=== PATIENT | female | born 1935 | race Caucasian/White ===

== ENCOUNTER 2019-05-18 19:26 | Inpatient (IN) ==
[2019-05-18] MEDS ORDERED: CARDIZEM IV ONE ×3 (20:27→23:49)
--- NOTE | 2019-05-18 21:17 | EKG Report ---
Test Performed on : 05/18/2019 7:33:31 PM Test Reason : palpitations Blood Pressure : / mmHG Vent. Rate : 132 BPM Atrial Rate : 258 BPM P-R Int : 000 ms QRS Dur : 072 ms QT Int : 272 ms P-R-T Axes : 078 073 075 degrees QTc Int : 403 ms Atrial flutter. with variable AV block. Nonspecific T wave abnormality Abnormal ECG When compared with ECG of 31-JUL-2017 16:12, Atrial flutter. has replaced Sinus rhythm. Vent. rate has increased BY [address] elevation now present in Inferior leads Nonspecific T wave abnormality, worse in Lateral leads Confirmed by Torsten RAMOS, Pedro ([id number]) on 05/19/2019 8:40:20 AM
[2019-05-18 22:36] LABS: BASO# 0.01 X1000 (0.0-0.2); BASO% 0.1 % (0.0-0.8); EOS# 0.08 X1000 (0.0-0.7); EOS% 1.1 % (0.0-10.0); HEMATOCRIT 41.9 % (37.0-47.0); HEMOGLOBIN 13.9 g/dL (12.0-16.0); LYMPH# 1.15 X1000 (1.2-3.4); LYMPH% 16.4 % (20.5-51.1); MCH 31.4 PG (27-31); MCHC 33.2 g/dL (33-37); MCV 94.8 FL (81-99); MONO# 0.68 X1000 (0.11-0.59); MONO% 9.7 % (1.7-9.3); MPV 9.7 FL (7.4-10.4); NEUT% 72.7 % (42.2-75.2); PLT 281 X1000 (130-400); RBC 4.42 XMIL (4.2-5.4); RDW 12.6 % (11.5-14.5); WBC 7.02 X1000 (4.8-10.8)
[2019-05-18 22:44] LABS: ALBUMIN 3.9 g/dL (3.5-5.0); CALCIUM 9.4 mg/dL (8.8-10.2); CREATININE 0.9 mg/dL (0.5-0.9); POTASSIUM 4.8 mmol/L (3.5-5.1); TOTAL BILIRUBIN 0.36 mg/dL (0.20-1.00); TOTAL PROTEIN 7.8 g/dL (6.3-8.3)
[2019-05-18 22:54] LABS: FREE T4 1.72 ng/dL (0.93-1.70); TSH 3.11 uIUmL (0.27-4.20)
[2019-05-18] MEDS ORDERED: ASPIRIN PO ONE (23:49)
[2019-05-18] MEDS ORDERED: NITROGLYCERIN SL ONE (23:50)
--- NOTE | 2019-05-19 00:07 | PROVIDER DOCUMENTATION ---
This chart was entered by Silvana Brian Scribe, acting as scribe for Abi Hernandez MD. HPI-Cardiac General - General Chief Complaint: Palpitations Stated Complaint: HIGH HEART RATE Time Seen by Provider: 05/18/19 19:31 Source: patient, family, RN/MD Allergies/Adverse Reactions: Patient Allergies Allergy/AdvReac Type Severity Reaction Status Date / Time No Known Allergies Allergy Verified 11/14/17 18:31 Home Medications: Home Medication List Medication Instructions Recorded Confirmed Last Taken Type Levothyroxine [Synthroid] 100 microgm PO DAILY 08/04/12 05/19/19 10/16/17 07:00 History Apixaban [Eliquis] 5 mg PO BID #60 tab 06/25/17 05/19/19 10/16/17 07:00 Rx Acetaminophen [Tylenol] 650 mg PO Q6H PRN PRN tablet 11/19/17 Unknown Rx Amiodarone [Cordarone] 100 mg PO QAM tablet 11/19/17 05/19/19 05/18/19 18:00 Rx Desvenlafaxine E.r. [Pristiq ER] 50 mg PO DAILY tablet 11/19/17 05/19/19 Unknown Rx Sucralfate [Carafate] 05/19/19 05/19/19 Unknown History - History of Present Illness-Cardiac Nature of Presenting Problem: pt is an 83 yof c/o heart palpitations since this am becoming worse this pm. pt has mild sob that is unchanged from baseline. pt did albuterol breathing tx x1 today. pt has hx of afib and is on rx. pt denies n/v, cp and diaphoresis. pt lives w/family. nonsmoker, no alcohol or drug use. Quality of Pain: reports: none Severity in ED: mild Onset/Duration: this morning Timing: getting worse Context/Activities at Onset: reports: none Modifying Factors: improves with: nothing Palpitation Quality: fast/pounding heart beat History of arrythmia: reports: A-Fib Recent use of:: reports: no stimulants Associated Symptoms: reports: shortness of breath (mild) Review of Systems - Adult - REVIEW OF SYSTEMS - ADULT Constitutional: reports: no symptoms reported. denies: chills, fever, fatique Eyes: reports: no symptoms reported Ears, Nose, Mouth & Throat: reports: no symptoms reported Cardiovascular: reports: see HPI, palpitations. denies: chest pain, orthopnea, poor circulation Respiratory: reports: see HPI, shortness of breath (mild). denies: cough, hemop tysis, pleurisy Gastrointestinal: reports: no symptoms reported Genitourinary: reports: no symptoms reported Musculoskeletal: reports: no symptoms reported Integumentary: reports: no symptoms reported Neurological: reports: no symptoms reported Psychiatric: reports: no symptoms reported Endocrine: reports: no symptoms reported Hematologic/Lymphatic: reports: no symptoms reported Allergic/Immunologic: reports: no symptoms reported All Other Systems: Reviewed and Negative Past History - Adult - PAST MEDICAL HISTORY-ADULT Review of Records: reports: Nursing Assessment Review, Medications Reviewed, Social history reviewed & non-contributory. Major Childhood Illnesses: reports: denies history Cardiovascular: reports: A-Fib, HTN Respiratory: reports: denies history Gastrointestinal: reports: denies history Obstetrical/Gynecological: reports: denies history Genitourinary: reports: denies history Musculoskeletal: reports: fibromyalgia Neurological: reports: denies history Psychiatric: reports: anxiety Endocrine/Immune: reports: denies history Other Conditions: reports: denies history - PRIOR SURGERIES/PROCEDURES Surgical/Procedure History: reports: appendectomy, hysterectomy, breast, other - IMMUNIZATION STATUS Childhood Immunizations: See Nurse Assessment Flu Vaccine: See Nurse Assessment - FAMILY HISTORY Family History: reviewed, not pertinent - SOCIAL HISTORY Smoking: non-smoker Substance Use: none/never Alcohol Use Frequency: never Living Situation: family Physical Exam-General - PHYSICAL EXAM-ADULT Initial Vital Signs Reviewed: Yes - CONSTITUTIONAL General Appearance: appears well, alert, no apparent distress - EYES Eyes: PERRL/EOMI, pink conjunctivae - HEAD, EARS, NOSE, MOUTH & THROAT HENMT: normocephalic/atraumatic, moist mucous membranes - NECK Neck: non-tender, full range of motion, supple, normal inspection - RESPIRATORY Respiratory: chest non-tender, lungs clear, normal breath sounds - CARDIOVASCULAR Cardiovascular: normal peripheral pulses, no edema, no gallop, no JVD, no murmur , tachycardia. negative: regular rate, rhythm, JVD, bradycardia, extra beats, friction rub - GASTROINTESTINAL (ABDOMEN) Abdominal Exam: normal bowel sounds, non tender, soft - LYMPHATIC Lymphatic: no adenopathy - MUSCULOSKELETAL Back Exam: normal inspection Extremity: normal range of motion, non-tender, normal inspection Peripheral Pulses: radial (R): 2+, radial (L): 2+ - SKIN Integumentary: normal color, normal turgor, warm/dry - NEUROLOGIC Neurologic: grossly normal, no motor/sensory deficits - PSYCHIATRIC Psych/Mental Status: normal mood/affect, normal thought content, normal thought process, oriented x 3 - HEART Score HEART Score: History: Slightly Suspicious HEART Score: ECG: Non-Specific Repolarization Disturbance/LBBB/PM HEART Score: Age: > or = 65 Years HEART Score: Risk Factors for Atherosclerotic Disease: 1 or 2 Risk Factors HEART Score: Troponin: < or = Normal Limit Total HEART Score:: 4 Progress - PLAN OF CARE/RESULTS Progress/Plan/Lab Results: Vital Signs - 8 hr 05/18/19 19:26 05/18/19 19:46 05/18/19 19:47 Temperature 98.3 F Pulse Rate 133 H 128 H 127 H Respiratory Rate 19 19 20 Blood Pressure 162/123 160/105 O2 Sat by Pulse Oximetry 100 97 05/18/19 20:00 05/18/19 20:15 05/18/19 20:16 Temperature Pulse Rate 127 H 125 H 126 H Respiratory Rate 22 26 H 19 Blood Pressure 184/124 O2 Sat by Pulse Oximetry 98 98 97 05/18/19 20:30 05/18/19 20:31 05/18/19 20:45 Temperature Pulse Rate 120 H 121 H 124 H Respiratory Rate 20 21 19 Blood Pressure 158/107 O2 Sat by Pulse Oximetry 98 97 97 05/18/19 20:46 05/18/19 21:00 05/18/19 21:01 Temperature Pulse Rate 126 H 98 H 94 H Respiratory Rate 15 17 18 Blood Pressure 149/112 150/94 O2 Sat by Pulse Oximetry 97 97 96 05/18/19 21:13 05/18/19 21:16 05/18/19 21:46 Temperature 98.1 F Pulse Rate 100 H 121 H Respiratory Rate 21 19 Blood Pressure 147/91 149/99 O2 Sat by Pulse Oximetry 97 98 05/18/19 22:01 05/18/19 22:16 05/18/19 22:31 Temperature Pulse Rate 103 H 98 H 102 H Respiratory Rate 16 17 17 Blood Pressure 160/102 134/106 149/88 O2 Sat by Pulse Oximetry 98 97 97 05/18/19 22:46 05/18/19 23:01 05/18/19 23:16 Temperature Pulse Rate 107 H 100 H 104 H Respiratory Rate 18 17 19 Blood Pressure 145/108 157/100 167/100 O2 Sat by Pulse Oximetry 97 98 98 05/18/19 23:32 05/18/19 23:47 05/19/19 00:04 Temperature Pulse Rate 107 H 108 H 114 H Respiratory Rate 17 17 21 Blood Pressure 162/114 146/95 154/117 O2 Sat by Pulse Oximetry 98 97 97 05/19/19 00:10 05/19/19 00:16 05/19/19 00:21 Temperature Pulse Rate 112 H 109 H 102 H Respiratory Rate 22 32 H 22 Blood Pressure 114/84 134/82 150/101 O2 Sat by Pulse Oximetry 96 96 97 05/19/19 00:26 05/19/19 00:31 05/19/19 00:36 Temperature Pulse Rate 106 H 100 H 105 H Respiratory Rate 18 12 19 Blood Pressure 125/98 128/97 115/84 O2 Sat by Pulse Oximetry 97 97 97 05/19/19 00:41 05/19/19 00:46 Temperature Pulse Rate 101 H 104 H Respiratory Rate 21 20 Blood Pressure 137/86 129/84 O2 Sat by Pulse Oximetry 97 97 Laboratory Results - last 24 hr 05/18/19 05/18/19 05/18/19 20:45 20:45 20:45 WBC 7.02 RBC 4.42 Hgb 13.9 Hct 41.9 MCV 94.8 MCH 31.4 H MCHC 33.2 RDW Std Deviation 12.6 Plt Count 281 MPV 9.7 Immature Gran % (Auto) 0.0 Neut % (Auto) 72.7 Lymph % (Auto) 16.4 L [place] % (Auto) 9.7 H Eos % (Auto) 1.1 Baso % (Auto) 0.1 Immature Gran # (Auto) 0.00 Neut # (Auto) 5.10 Lymph # (Auto) 1.15 L [place] # (Auto) 0.68 H Eos # (Auto) 0.08 Baso # (Auto) 0.01 Sodium Potassium Chloride Carbon Dioxide Anion Gap BUN Creatinine Estimated GFR/1.73 m2 BUN/Creatinine Ratio Glucose Calculated Osmolality Calcium Total Bilirubin AST ALT Alkaline Phosphatase Creatine Kinase 57 Troponin T < 0.010 Total Protein Albumin Globulin Albumin/Globulin Ratio TSH Free T4 Urine Source 05/18/19 05/18/19 12 20:45 20:45 23:31 WBC RBC Hgb Hct MCV MCH MCHC RDW Std Deviation Plt Count MPV Immature Gran % (Auto) Neut % (Auto) Lymph % (Auto) [place] % (Auto) Eos % (Auto) Baso % (Auto) Immature Gran # (Auto) Neut # (Auto) Lymph # (Auto) [place] # (Auto) Eos # (Auto) Baso # (Auto) Sodium 134 L Potassium 4.8 Chloride 96 L Carbon Dioxide 24 L Anion Gap 14 BUN 20 Creatinine 0.9 Estimated GFR/1.73 m2 60 BUN/Creatinine Ratio 22 Glucose 88 Calculated Osmolality 270 Calcium 9.4 Total Bilirubin 0.36 AST 28 ALT 13 Alkaline Phosphatase 135 H Creatine Kinase Troponin T < 0.010 Total Protein 7.8 Albumin 3.9 Globulin 3.9 Albumin/Globulin Ratio 1.0 TSH 3.11 Free T4 1.72 H Urine Source 05/19/19 00:46 WBC RBC Hgb Hct MCV MCH MCHC RDW Std Deviation Plt Count MPV Immature Gran % (Auto) Neut % (Auto) Lymph % (Auto) [place] % (Auto) Eos % (Auto) Baso % (Auto) Immature Gran # (Auto) Neut # (Auto) Lymph # (Auto) [place] # (Auto) Eos # (Auto) Baso # (Auto) Sodium Potassium Chloride Carbon Dioxide Anion Gap BUN Creatinine Estimated GFR/1.73 m2 BUN/Creatinine Ratio Glucose Calculated Osmolality Calcium Total Bilirubin AST ALT Alkaline Phosphatase Creatine Kinase Troponin T Total Protein Albumin Globulin Albumin/Globulin Ratio TSH Free T4 Urine Source CLEAN CATCH Orders Category Date Time Status Update & Confirm Home Medicati ROUTINE Care 05/19/19 00:36 Active cxr [CHEST-1 VIEW] [RAD] Stat Exams 05/19/19 00:46 Ordered CBC WITH DIFF [HEME] Stat Lab 05/18/19 20:45 Completed CK PROFILE [SP CHEM] Stat Lab 05/18/19 20:45 Completed COMPREHENSIVE METABOLIC PANEL [CHEM] Stat Lab 05/18/19 20:45 Completed FREE T4 Stat Lab 05/18/19 20:45 Completed TROPONIN T Stat Lab 05/18/19 20:45 Completed TROPONIN T Stat Lab 05/18/19 23:31 Completed TSH Stat Lab 05/18/19 20:45 Completed UA [URINALYSIS W/POSS RFLX CULT] [URINALYSIS] Stat Lab 05/19/19 00:46 Results Aspirin Med 05/18/19 23:49 Discontinued 81 mg PO NOW ONE Digoxin [Lanoxin] Med 05/19/19 00:36 Discontinued 250 microgm IV NOW ONE Diltiazem [Cardizem] Med 05/18/19 20:27 Discontinued 10 mg IV NOW ONE Diltiazem [Cardizem] Med 05/18/19 22:07 Discontinued 10 mg IV NOW ONE Diltiazem [Cardizem] Med 05/18/19 23:49 Discontinued 5 mg IV NOW ONE Diltiazem [Cardizem] Med 05/19/19 00:37 Discontinued 60 mg PO NOW ONE Nitroglycerin Sl [Nitroglycerin] Med 05/18/19 23:50 Discontinued 0.4 mg SL NOW ONE EKG [EKG] Stat Ther 05/18/19 20:27 Draft Transfer/Admit Order [TRANSFER] Routine Transfer 05/19/19 00:31 Ordered Result Diagrams: 05/18/19 20:45 05/18/19 20:45 - REASSESSMENT Reassessment #1 Time Reassessed: 22:08 Status: improving (Denies chest, sob. comfortable. Discussed initial neg trop. BP and pulse improving but still elevated. Will repeat cardizen and trop. Based on her previous hospitalization not reviewed, she has no h/o HTN but hypot4, will order tsh, t4) Reassessment #2 Time Reassessed: 11:30 Status: worsening (patient no reports chest pain and wants to be admitted. will give her, NTG ASA 81mg. had given her a small part of asa 325mg as he had broken it in pieces. She has not been given a 2nd dose of cardizen, will give her 5mg as she is still hypertensive, tarhycardic) - EKG 1 Time of EKG reading by physician:: 19:39 EKG Read and Signed by:: Wang Almonte EKG Interpretation (*Must complete 3 of following elements*): Abnormal Rate: 132 Rhythm: Aflutter w/variable AV block [place]: normal QRS: normal ST Wave: non-specific ST changes (nonspecific T wave abnormality) - CONSULTS/PCP/HOSPITALIST Notification #1 *Consult/PCP/Hospitalist*: Dr Harmon Time Discussed: 11:55 Consult Disposition: Admit (accepts admission) Departure - Departure Date of Disposition Decision: 05/19/19 Time of Disposition Decision: 11:55 DIAGNOSIS: Atrial fibrillation/flutter Chest pain Qualifiers: Chest pain type: unspecified Qualified Code(s): R07.9 - Chest pain, unspecified Disposition: ADMITTED INPATIENT 09 Certified Medical Emergency: Emergent Condition: Fair Referrals and Follow-Ups: Yordan Rai MD [Primary Care Provider] - - Critical Care Note This patient required my direct & personal management of CC.: No Attestation - Physician/ WALTER Attestation Patient care was provided by Advanced Practice Provider:: No The physician spent face to face time with patient:: Yes Advanced Practice Provider documentation review:: Supervising physician onsite and consulted in the evaluation and care of this patient. The physician did have a face to face encounter with the patient. This chart was documented by the indicated scribe, (Silvana Brian Scribe) and accurately reflects the services I performed and decisions made by me, Abi Hernandez MD, as attested by the provider's signature.
[2019-05-19] MEDS ORDERED: LANOXIN IV ONE (00:36)
[2019-05-19] MEDS ORDERED: CARDIZEM PO ONE (00:37)
[2019-05-19 00:50] LABS: URINE SOURCE CLEAN CATCH
[2019-05-19 01:32] LABS: BILIRUBIN URINE NEGATIVE (NEGATIVE); BLOOD URINE NEGATIVE (NEGATIVE); COLOR STRAW; GLUCOSE URINE NEGATIVE (NEGATIVE); KETONE URINE NEGATIVE (NEGATIVE); LEUKOCYTES URINE NEGATIVE (NEGATIVE); NITRITE URINE NEGATIVE (NEGATIVE); PROTEIN URINE NEGATIVE (NEGATIVE); SP GRAVITY URINE 1.009; TURBIDITY URINE CLEAR (CLEAR); UROBILINOGEN URINE NORMAL (NORMAL)
[2019-05-19 01:33] LABS: UR EPITHELIAL CELLS <10 /HPF (<10); URINE BACTERIA NEGATIVE /HPF; URINE RBC <10 /HPF (<10); URINE WBC <10 /HPF (<10)
[2019-05-19] MEDS ORDERED: TYLENOL PO PRN ×2 (02:52→04:46)
[2019-05-19] MEDS ORDERED: NS 1,000 ML IV SCH (02:52)
[2019-05-19] MEDS ORDERED: ZOFRAN IV PRN (02:52)
[2019-05-19] MEDS: XOPENEX NEB INH SCH ×6 (02:59→23:50)
--- NOTE | 2019-05-19 04:24 | HISTORY AND PHYSICAL ---
PRIMARY CARE PHYSICIAN: Yordan Rai MD CHIEF COMPLAINT: Heart palpitations, high heart rate. HPI: This is an 83-year-old female. She is very pleasant but is a fairly poor historian. Her elderly is at the bedside. Patient has mild shortness of breath. I think this is related to bronchiectasis. She has other past medical histories of hypothyroidism, hypertension, paroxysmal atrial fibrillation, chronic mid and low back pain, as well as GERD. She stated that she started having heart palpitations after taking her normal breathing treatment. She was unable to tell what her home medications were, as noted above is somewhat of a poor historian. She did state that she has been taking CBD oil, which we have recently noted flipping patients into atrial fibrillation in the elderly population admissions. At any rate, after her albuterol breathing treatment she started having palpitations. She states that she has been taking all of her home medications, however, she is not sure what those are. She denied any nausea or vomiting. Originally denied chest pain, however, she was having some mild chest pain during my examination. It was substernal, did not radiate, and she also denied diaphoresis. EKG confirmed AFib with a rapid ventricular rate. She was given several doses of IV Cardizem. She is now somewhat rate controlled with a rate around 100. Will give her an oral dose of Cardizem in the emergency room as well as an IV dose of digoxin, and place her on PVC for further evaluation and treatment. PAST MEDICAL HISTORY: See HPI. PREVIOUS SURGICAL HISTORY: Status post left mastectomy, appendectomy, hysterectomy, parathyroid tumor removal. SOCIAL HISTORY: Lives with elderly . No alcohol or tobacco. No illicit drugs. FAMILY HISTORY: States that was positive for heart disease as well as CVA. ALLERGIES: AZITHROMYCIN AND CEPHALEXIN. HOME MEDICATIONS: A list of home medications could not be obtained. Apparently it is with the daughter who is not presently here. She is supposed to bring the medications tomorrow, however, Dr. Yordan Rai likely has a copy of her home medication list as he sees her outpatient. Will defer to him tomorrow morning restarting her home medications. REVIEW OF SYSTEMS: A 14-point conducted with the patient. Pertinent positives listed above in the HPI. All other systems reviewed and found to be negative. PHYSICAL EXAMINATION: VITAL SIGNS: Temperature 98.1, pulse 104, respirations 17, blood pressure 138/88, oxygen saturation 98% on room air. GENERAL: Pleasant 83-year-old female lying in the ER stretcher. She is alert and oriented x3, somewhat of a poor historian. is at bedside. She is in no acute distress. HEENT: Head is atraumatic, normocephalic. Pupils equal, round, reactive to light. Extraocular eye movements intact. Sclera anicteric. Conjunctiva pink. Oral mucosa is moist. NECK: Supple. No JVD, no thyromegaly. Trachea is midline. No cervical lymphadenopathy. CARDIAC: S1, S2, appreciated. Irregularly irregular. She is mildly tachycardic. No murmurs, gallops, rubs. LUNGS: Clear to auscultation bilaterally. No rhonchi, wheezes, rales. Symmetric rise and fall respirations. ABDOMEN: Soft, nondistended, nontender. Bowel sounds present all 4 quadrants. Normoactive. No pulsatile mass or organomegaly. EXTREMITIES: No clubbing or cyanosis, 1+ pitting edema bilateral ankles, 1+ pedal pulses. Lower extremities are cool to touch. NEUROLOGICAL: She is alert and oriented x3. Poor historian. Cranial nerves 2- 12 appear to be grossly intact. DIAGNOSTIC DATA: EKG shows AFib with a rapid ventricular rate. LABORATORY DATA: CBC within normal limits. Sodium 134, potassium 4.8, chloride 96, carbon dioxide 24, BUN 20, creatinine 0.9, glucose 88. Troponin negative x2 sets. TSH is 3.11. ASSESSMENT: 1. Atrial fibrillation with a rapid ventricular rate. 2. Bronchiectasis. 3. Hypothyroidism. 4. Chronic back pain. PLAN: Admit patient to PVC. As noted her heart rate has been somewhat controlled at this time. Will give her 60 mg p.o. Cardizem and 250 mcg of IV digoxin. She was unable to tell me if she is on blood thinners. I assume that she is. Again, will defer to Dr. Rai to restart her home medications tomorrow morning. In the past I see that she has been on Cardizem as well as low-dose amiodarone, and Eliquis. These can be restarted tomorrow once dosage is confirmed. Chest x-ay is pending secondary to bronchiectasis. TSH is within normal limits. Continue her normal dosing of Synthroid once obtained. Chronic back pain. She did not have any complaints of pain at this time. She has Tylenol on her medication profile. Again will defer to Dr. Rai restarting her home medications. The patient states that she does not take any kind of narcotic pain medication. That is the reason she tried the CBD oil was for the chronic back pain. At any rate, as noted above the patient will be placed on PCV and monitored closely with telemetry. Further recommendations per patient clinical course. Dictated by LESLEY Barbour for Michael Harmon MD cc: LESLEY Barbour MD Russell T. Barr, MD Independent exam only notable for fluctuating sinus tachycardia vs a fib rvr. Will continue Oral Cardizem since HR maintaining the low 100's. Likely due albuterol and or CBD oil. MTDD
[2019-05-19] MEDS: ULTRAM PO PRN (05:15)
[2019-05-19] MEDS: TYLENOL PO PRN (05:15)
--- NOTE | 2019-05-19 07:15 | Diag Imaging Result Doc PS360 ---
EXAM: CHEST-1 VIEW 05/19/2019 HISTORY: dypnea TECHNIQUE: AP portable at 0104 COMMENT: There are patchy nodular and coarse opacities over both lungs which were largely present on 09/18/2018. There may be some superimposed interstitial opacity which was not previously present. IMPRESSION: Granulomatous changes and pulmonary fibrosis with superimposed pulmonary edema. Electronically signed by Danish [place] 05/19/2019 7:12 AM
[2019-05-19] MEDS: ELIQUIS PO SCH ×2 (08:31→21:35)
[2019-05-19] MEDS: SYNTHROID PO SCH (08:31)
[2019-05-19] MEDS: PRISTIQ ER PO SCH (08:32)
[2019-05-19] MEDS ORDERED: CORDARONE PO SCH (09:00)
--- NOTE | 2019-05-19 11:11 | EKG Report ---
Test Performed on : 05/19/2019 10:58:04 AM Test Reason : afib Blood Pressure : / mmHG Vent. Rate : 096 BPM Atrial Rate : 249 BPM P-R Int : 000 ms QRS Dur : 082 ms QT Int : 408 ms P-R-T Axes : 000 072 067 degrees QTc Int : 515 ms Atrial flutter. with variable AV block. Prolonged QT Abnormal ECG When compared with ECG of 18-MAY-2019 19:33, No significant change was found Confirmed by Torsten RAMOS, Pedro ([id number]) on 05/20/2019 8:34:09 AM
[2019-05-19] MEDS: ATROVENT NEB INH SCH ×4 (11:31→22:09)
[2019-05-19] MEDS: CORDARONE PO SCH ×2 (12:26→21:35)
[2019-05-19] MEDS ORDERED: CARAFATE LIQUID PO PRN (13:03)
--- NOTE | 2019-05-19 21:24 | CONSULTATION ---
DATE OF CONSULTATION: 05/19/2019 IMPRESSION: 1. Recurrent atrial fibrillation with rapid ventricular rate. The patient had been on amiodarone 200 mg a day, but this was reduced to 100 mg daily. 2. Hypertension. 3. Paroxysmal atrial fibrillation. 4. Gastroesophageal reflux disease. 5. Hypothyroidism. RECOMMENDATIONS: 1. Continue anticoagulation with Eliquis. 2. Try and load patient orally with amiodarone. If she fails to convert back to sinus rhythm, consider cardioversion later in the week. HISTORY: This 83-year-old, white female with past history of paroxysmal atrial fibrillation, hypertension, gastroesophageal reflux and hypothyroidism was admitted after she started having recurrent tachy palpitations and some mild chest discomfort. She was found to be in atrial flutter with rapid ventricular rate. She has started on intravenous Cardizem for rate control as well as digoxin IV. She is presently without any chest symptoms. She has been on amiodarone to control her atrial arrhythmias in the past and was previously on 200 mg daily. This was cut to 100 mg daily. She did not have any recurrent palpitations until yesterday morning. She has not had any bleeding issues with respect to her anticoagulation with Eliquis. PAST MEDICAL HISTORY: 1. Paroxysmal atrial fibrillation. 2. Hypertension. 3. Gastroesophageal reflux disease. 4. Hypothyroidism. 5. Polymyositis. 6. Chronic back disorder/pain. PAST SURGICAL HISTORY: Includes left mastectomy for breast cancer, appendectomy, hysterectomy, parathyroid surgery. ALLERGIES: She has no known drug allergies. MEDICATIONS PRIOR TO ADMISSION: As listed. SOCIAL HISTORY: She is and lives with her . She does not smoke or use alcohol. FAMILY HISTORY: Negative for premature coronary disease. REVIEW OF SYSTEMS: Pulmonary: Negative. Gastrointestinal: Noncontributory beyond history of present illness. Constitutional: Noncontributory beyond history of present illness. Remainder of review of systems negative/noncontributory beyond history present illness with 14 total systems reviewed. PHYSICAL EXAMINATION: General: This is a pleasant, elderly white female in no distress on room air. Vital signs: Blood pressure 139/75, heart rate 86 and irregular. HEENT: Extraocular movements intact. Mucous membranes moist. Neck: Supple without jugular venous distention. No carotid bruits. Chest: Clear to auscultation. Cardiac Exam: Reveals a irregular rate and rhythm without appreciable murmur or gallop. Abdomen: Soft. Bowel sounds normal. Extremities: Without edema. Neurologic: Reveals her to be alert and responsive. Speech is fluent. Moves all 4 extremities equally well. PERTINENT DATA: Twelve lead EKG demonstrates atrial flutter with variable AV block. LABORATORY DATA: Include sodium 138, potassium 4.8, chloride 96, carbon dioxide 24, BUN 20, creatinine 0.9. Glucose 88. Magnesium 1.9. CPK 57. Troponin T less than 0.01. TSH 3.11, free T4 1.72. White blood cell count 7.02, hematocrit 41.9, hemoglobin 13.9, platelet count 281,000. cc: MD Yordan Nichols MD
[2019-05-20] MEDS: TYLENOL PO PRN ×2 (01:30→13:55)
[2019-05-20] MEDS: ULTRAM PO PRN ×3 (01:30→19:44)
[2019-05-20] MEDS: NITROGLYCERIN SL PRN ×3 (02:10→13:30)
[2019-05-20] MEDS: XOPENEX NEB INH SCH ×2 (03:43→08:02)
--- NOTE | 2019-05-20 03:49 | EKG Report ---
Test Performed on : 05/20/2019 02:16:13 AM Test Reason : chest pain Blood Pressure : / mmHG Vent. Rate : 130 BPM Atrial Rate : 258 BPM P-R Int : 000 ms QRS Dur : 076 ms QT Int : 382 ms P-R-T Axes : 000 069 082 degrees QTc Int : 562 ms Critical Test Result: Long QTc Atrial flutter. with variable AV block. Nonspecific ST abnormality Abnormal ECG When compared with ECG of 19-MAY-2019 10:58, (Unconfirmed) ST elevation now present in Inferior leads Confirmed by Torsten RAMOS, Pedro ([id number]) on 05/20/2019 8:39:30 AM
[2019-05-20 07:43] LABS: AGAP 15; BUN 18 mg/dL (8-22); CALCIUM 8.9 mg/dL (8.8-10.2); CHLORIDE 97 mmol/L (98-107); COSMO 267; CREATININE 0.8 mg/dL (0.5-0.9); ESTIMATED GFR > 60; GLUCOSE 107 mg/dL (70-104); POTASSIUM 3.9 mmol/L (3.5-5.1); SODIUM 132 mmol/L (136-145); TCO2 20 mmol/L (25-35)
--- NOTE | 2019-05-20 07:56 | EKG Report ---
Test Performed on : 05/20/2019 06:41:23 AM Test Reason : afib Blood Pressure : / mmHG Vent. Rate : 122 BPM Atrial Rate : 122 BPM P-R Int : 208 ms QRS Dur : 098 ms QT Int : 324 ms P-R-T Axes : 000 072 082 degrees QTc Int : [address] elevation, probably due to early repolarization Nonspecific ST and T wave abnormality Abnormal ECG When compared with ECG of 20-MAY-2019 02:16, (Unconfirmed) Sinus rhythm. has replaced Atrial flutter. QRS duration has increased Confirmed by Torsten RAMOS, Pedro ([id number]) on 05/20/2019 8:41:14 AM
[2019-05-20] MEDS: ATROVENT NEB INH SCH ×3 (08:02→22:15)
[2019-05-20] MEDS ORDERED: MIRALAX PO ONE (09:09)
[2019-05-20] MEDS: ELIQUIS PO SCH ×3 (09:17→20:58)
[2019-05-20] MEDS: CORDARONE PO SCH ×3 (09:17→20:58)
[2019-05-20] MEDS: SYNTHROID PO SCH (09:17)
[2019-05-20] MEDS: PRISTIQ ER PO SCH (09:18)
--- NOTE | 2019-05-20 13:36 | EKG Report ---
Test Performed on : 05/20/2019 1:25:23 PM Test Reason : chest pain Blood Pressure : / mmHG Vent. Rate : 097 BPM Atrial Rate : 097 BPM P-R Int : 180 ms QRS Dur : 074 ms QT Int : 410 ms P-R-T Axes : 095 063 073 degrees QTc Int : 520 ms Normal sinus rhythm. Prolonged QT Abnormal ECG When compared with ECG of 20-MAY-2019 06:41, Nonspecific T wave abnormality no longer evident in Inferior leads Nonspecific T wave abnormality no longer evident in Lateral leads Confirmed by Torsten RAMOS, Pedro ([id number]) on 05/20/2019 5:41:12 PM
--- NOTE | 2019-05-20 17:41 | EKG Report ---
Test Performed on : 05/20/2019 5:25:43 PM Test Reason : recent atrial fib/flutter Blood Pressure : / mmHG Vent. Rate : 102 BPM Atrial Rate : 102 BPM P-R Int : 180 ms QRS Dur : 074 ms QT Int : 374 ms P-R-T Axes : 074 068 060 degrees QTc Int : 487 ms Sinus tachycardia. Early repolarization Otherwise normal ECG When compared with ECG of 20-MAY-2019 13:25, (Unconfirmed) No significant change was found Confirmed by Torsten RAMOS, Pedro ([id number]) on 05/20/2019 5:43:11 PM
--- NOTE | 2019-05-20 19:20 | CARDIOLOGY PROGRESS NOTE ---
DATE: 05/20/2019 SUBJECTIVE: The patient converted back to sinus rhythm this morning. After midday meal, she developed some indigestion-like chest discomfort. She describes some improvement in discomfort with belching. Discomfort lasted over an hour and resolved. ECG was obtained during discomfort and demonstrated sinus rhythm with diffuse ST abnormality. She does relate some discomfort with deep breath. Discomfort has resolved. OBJECTIVE: Vital signs: Blood pressure 116/64, heart rate 88, oxygen saturation 99% on room air. Chest is clear to auscultation. Cardiac exam reveals a regular rate and rhythm without appreciable murmur, rub or gallop. There is no evidence of peripheral edema. LABORATORY DATA: Includes a sodium 132, potassium 3.9, chloride 97, carbon dioxide 20, BUN 15, creatinine 0.8, glucose 107. DIAGNOSTIC DATA: ECG demonstrates sinus rhythm and diffuse ST abnormality, consider possible pericarditis versus early repolarization. IMPRESSION: 1. Recent recurrence of atrial fibrillation with rapid ventricular rate, over 130 beats per minute while on reduced dose of amiodarone. The patient has converted back to sinus rhythm with supplemental amiodarone. 2. Recent episode of chest discomfort with apparently atypical features. Electrocardiogram demonstrates diffuse ST elevation, suggesting possible pericarditis. She does have history of Sjogren syndrome. 3. Hypertension. 4. Gastroesophageal reflux disease. 5. Hypothyroidism. RECOMMENDATIONS: 1. Check serum troponin. 2. Arrange echocardiography. 3. Continue increased dose of amiodarone along with anticoagulation with Eliquis. 4. Observe patient overnight. cc: MD Yordan Nichols MD
[2019-05-21] MEDS: TYLENOL PO PRN (00:54)
[2019-05-21] MEDS: ATROVENT NEB INH SCH ×3 (08:07→20:37)
[2019-05-21] MEDS: SYNTHROID PO SCH (08:20)
[2019-05-21] MEDS: ELIQUIS PO SCH ×2 (08:20→20:56)
[2019-05-21] MEDS: PRISTIQ ER PO SCH (08:20)
[2019-05-21] MEDS: CORDARONE PO SCH ×2 (08:20→20:56)
--- NOTE | 2019-05-21 14:53 | EKG Report ---
Test Performed on : 05/21/2019 2:42:09 PM Test Reason : atrial fibrillation, paroxysmal Blood Pressure : / mmHG Vent. Rate : 101 BPM Atrial Rate : 101 BPM P-R Int : 186 ms QRS Dur : 076 ms QT Int : 370 ms P-R-T Axes : 089 073 075 degrees QTc Int : [address] elevation, probably due to early repolarization Borderline ECG When compared with ECG of 20-MAY-2019 17:25, No significant change was found Confirmed by Torsten RAMOS, Pedro ([id number]) on 05/22/2019 10:39:03 AM
[2019-05-21] MEDS ORDERED: MIRALAX PO ONE (16:11)
--- NOTE | 2019-05-21 16:26 | ECHO REPORT ---
ORDER DATE: 05/20/2019 INTERPRETING PHYSICIAN: Dr. Karel Leger ECHOCARDIOGRAPHIC MEASUREMENTS: 1. Interventricular septum: 1.3 cm. 2. Left ventricular posterior wall: 0.7 cm. 3. Diastolic diameter: 3.5 cm. 4. Left atrium: 3.9 cm. 5. Aorta: 3.4 cm. SUMMARY OF THE 2-DIMENSIONAL IMAGIN. Aortic valve leaflets are calcified, trileaflet, opening normally. 2. Pulmonic valve was normal. 3. Mitral valve was normal. 4. There is biatrial enlargement, moderate. 5. Normal left ventricular cavity size. 6. Concentric left ventricular hypertrophy. 7. Estimated ejection fraction of 65%. 8. There is calcification noted on the papillary muscles and chordae tendineae. 9. There is moderate mitral annular calcification. 10. Mild tricuspid regurgitation. 11. Peak velocity across the tricuspid valve was 3 meters per second. 12. Pulmonary artery systolic pressure of 50 mmHg. 13. There is grade 2 diastolic dysfunction. 14. There is mild mitral regurgitation. 15. Peak velocity across the aortic valve less than 2 meters per second. 16. By Doppler studies, there is no aortic stenosis. 17. There is aortic sclerosis. 18. There is no aortic regurgitation. 19. There is no pericardial effusion or obvious intracardiac mass or thrombus seen. cc: MD Donald Nolan MD Russell T. Barr, MD
--- NOTE | 2019-05-21 18:24 | CARDIOLOGY PROGRESS NOTE ---
DATE: 05/21/2019 SUBJECTIVE: Patient continues without chest discomfort or dyspnea on room air. She continues in sinus rhythm. OBJECTIVE: Blood pressure 125/67, heart rate 91, oxygen saturation 100% on room air. There is no significant jugular venous distention.Chest: Clear to auscultation bilaterally. Cardiac: Regular rate and rhythm without appreciable murmur, rub, or gallop. Extremities: Without edema. LABORATORY AND DIAGNOSTIC DATA: Includes troponin less than 0.01. Followup troponin is pending. Echocardiography pending. IMPRESSION: 1. Recent recurrence of atrial fibrillation with rapid ventricular rate over 130 beats per minute while on reduced dose of amiodarone. Patient has converted back to sinus rhythm with supplemental amiodarone. 2. Recent episode of chest discomfort with mixed but predominantly atypical features. Electrocardiogram demonstrated diffuse ST-elevation suggesting possible pericarditis. The patient's chest symptoms have resolved. 3. Hypertension. 4. Gastroesophageal reflux disease. 5. Hypothyroidism. RECOMMENDATIONS: 1. Repeat troponin and ECG. 2. Followup echocardiography. 3. 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 cc: MD Yordan Nichols MD
[2019-05-22] MEDS: ATROVENT NEB INH SCH ×2 (08:23→15:43)
[2019-05-22] MEDS ORDERED: MIRALAX PO SCH (09:00)
[2019-05-22] MEDS ORDERED: ZEBETA PO ONE (09:04)
[2019-05-22] MEDS: ELIQUIS PO SCH (09:24)
[2019-05-22] MEDS: PRISTIQ ER PO SCH (09:24)
[2019-05-22] MEDS: SYNTHROID PO SCH (09:24)
[2019-05-22] MEDS: CORDARONE PO SCH (09:24)
[2019-05-22 11:20] VITALS: BP 112/73
--- NOTE | 2019-05-22 14:30 | EKG Report ---
Test Performed on : 05/22/2019 1:46:36 PM Test Reason : afib Blood Pressure : / mmHG Vent. Rate : 073 BPM Atrial Rate : 073 BPM P-R Int : 198 ms QRS Dur : 082 ms QT Int : 424 ms P-R-T Axes : 084 076 076 degrees QTc Int : 467 ms Normal sinus rhythm. Normal ECG When compared with ECG of 21-MAY-2019 14:42, No significant change was found Confirmed by Torsten RAMOS, Pedro ([id number]) on 05/25/2019 8:12:34 AM
[2019-05-22 14:42] LABS: CALCIUM 9.1 mg/dL (8.8-10.2); CREATININE 1.1 mg/dL (0.5-0.9); POTASSIUM 4.4 mmol/L (3.5-5.1)
[2019-05-22] MEDS ORDERED: SOLU-MEDROL IV ONE (14:46)
--- NOTE | 2019-05-22 15:55 | DISCHARGE SUMMARY ---
See other complete dictation RTB MTDD
[2019-05-22] MEDS ORDERED: ZEBETA PO SCH (21:00)
--- NOTE | 2019-05-29 14:13 | DISCHARGE SUMMARY ---
ADMISSION DATE: 05/19/2019 DISCHARGE DATE: 05/22/2019 FINAL DIAGNOSES: 1. Paroxysmal atrial fibrillation, recurrent. 2. Acute pericarditis. 3. Hypothyroidism. 4. History of depression, currently in remission. 5. Chronic constipation. 6. Fibromyalgia with chronic fatigue. PRESENT ILLNESS: Ms. Lin is an 83-year old woman who presented to the Emergency Room with rapid irregular heart beat onset during a nebulizer treatment at home. She is followed by Dr. Call for bronchiectasis. EKG in the Emergency Room revealed paroxysmal atrial fibrillation with a heart rate of 132. With several doses of intravenous Cardizem her rate slowed to approximately 100 and she was admitted for further evaluation. She did not initially complain of any chest pain. PHYSICAL EXAMINATION: Physical examination revealed an elderly woman with vital signs as documented in the nurses notes. Lungs: Clear. Cardiac: Irregularly irregular rhythm with no murmurs, gallops, or rubs detected. Abdomen: Soft and nontender. Extremities: No edema. LABORATORY DATA: Sodium 134, BUN 20, and creatinine 0.9. TSH was 3.11. Multiple CPKs and troponins were negative. CBC was unremarkable. Urinalysis was clear. HOSPITAL COURSE: She was admitted to the PVC Unit and continued on a Cardizem drip. This was changed to oral Cardizem. She was continued on her Eliquis. Cardiology consultation with Dr. Oliveros who recommended increasing her amiodarone. She was given a second oral loading dose and her respiratory treatments were changed from DuoNeb to Atrovent nebulizer treatments. She was continued on bisoprolol. She subsequently complained of some right-sided chest pain. A repeat EKG showed some diffuse ST elevation suggestive of pericarditis. An echocardiogram was performed which showed normal left ventricular function and no pericardial effusion. She converted to sinus rhythm and maintained this. Prior to discharge her sedimentation rate was performed and was 62 with a CRP of 180. She was felt to have pericarditis and given a dose of Solu-Medrol and discharged on colchicine 0.6 mg twice a day for a week and prednisone 20 mg every a.m. for a week. DISCHARGE MEDICATIONS: Colchicine 0.6 mg twice a day for a week. Prednisone 20 mg every a.m. for a week. OTHER DISCHARGE MEDICATIONS: Atrovent nebulizer treatments 3 times a day. Amiodarone 200 mg twice a day for 14 days and then 1 tablet once a day. Bisoprolol 2.5 mg, one-half of a 5 mg tablet, twice a day. Levothyroxine 100 mcg daily. Eliquis 5 mg twice a day. Desvenlafaxine ER 50 mg every a.m. for depression. Tramadol 1 tablet every 6 hours as needed for pain. MiraLAX 17 g daily. Acetaminophen 500 mg every 6 hours as needed for pain or fever. DISCHARGE FOLLOW UP: She is to return to see the university relations vice president in 2 weeks and my office in 3 to 4 weeks. cc: Yordan Rai MD
== END 2019-05-22 16:50 | disposition home or self-care (01) | DRG 309 ==
LOC: ED 19:26 → EDIPHOLD 05-19 01:46 → 2N 05-19 02:51
PROVIDERS: ADMIT Internal Medicine; ATTEND Internal Medicine